=== PATIENT | male | born 1995 | race Caucasian/White ===

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

== ENCOUNTER 2017-01-17 00:36 | Inpatient (IN) | payer MEDICAID ==
[~2017-01-17] VITALS: Ht 185.4 cm; Wt 104.3 kg
[~2017-01-17 00:36] MED LIST: ARIP15TA3 PO
[2017-01-17 01:50] VITALS: BP 141/80
[2017-01-17] MEDS ORDERED: ZOLPIDEM TARTRATE 10 MG TABLET PO PRN (02:00)
[2017-01-17 03:30] VITALS: BP 135/78
[2017-01-17 08:12] VITALS: BP 119/71
[2017-01-17 09:32] LABS: BASOPHILS % (AUTO) 0.6 % (0.0-2.0); EOSINOPHILS % (AUTO) 2.5 % (1.0-6.0); HEMATOCRIT 47.9 % (41-53); HEMOGLOBIN 15.7 g/dL (13.5-17.5); LYMPHOCYTES # (AUTO) 2.3 K/uL (1.0-4.8); LYMPHOCYTES % (AUTO) 30.5 % (22.0-44.0); MEAN CORPUSCULAR HEMOGLOBIN 29.5 pg (26.0-34.0); MEAN CORPUSCULAR HGB CONC 32.9 G/dL (31.0-37.0); MEAN CORPUSCULAR VOLUME 90 fL (80-100); MONOCYTES # (AUTO) 0.6 K/uL (0.1-1.0); MONOCYTES % (AUTO) 7.3 % (2.0-9.0); NEUTROPHILS # (AUTO) 4.5 K/uL (1.8-7.7); NEUTROPHILS % (AUTO) 59.1 % (40.0-70.0); PLATELET COUNT (AUTO) 190 K/uL (150-450); RED BLOOD CELL COUNT(AUTO) 5.32 MIL/uL (4.50-5.90); RED CELL DISTRIBUTION WIDTH 13.1 % (11.5-14.5); WHITE BLOOD COUNT (AUTO) 7.6 K/uL (4.5-11.0)
[2017-01-17 09:55] LABS: ALANINE AMINOTRANSFERASE 54 U/L (12-78); ALBUMIN 3.9 g/dL (3.4-5.0); ANION GAP 8 mmol/L (8-16); ASPARTATE AMINOTRANSFERASE 20 U/L (15-37); BILIRUBIN,TOTAL 0.3 mg/dL (0.1-1.0); CALCIUM, TOTAL 8.8 mg/dL (8.8-10.5); CARBON DIOXIDE 31 mmol/L (22-29); CHLORIDE 103 mmol/L (98-107); CREATININE 1.02 mg/dL (0.60-1.30); GLOMERULAR FILTR. RATE CALC > 60 mL/min (>60); POTASSIUM 3.7 mmol/L (3.5-5.1); SODIUM SERUM 142 mmol/L (136-145); TOTAL PROTEIN, SERUM 7.5 g/dL (6.4-8.2); UREA NITROGEN, BLOOD 12 mg/dL (7-18)
[2017-01-17] MEDS: HALOPERIDOL 5 MG TABLET PO PRN (10:55)
[2017-01-17] MEDS: LORazepam 2 MG TABLET PO PRN ×2 (10:55→20:09)
[2017-01-17 16:00] VITALS: BP 122/64
[2017-01-17] MEDS: ARIPiprazole 15 MG TABLET PO SCH (20:08)
[2017-01-17] MEDS ORDERED: ACETAMINOPHEN 325 MG TABLET PO PRN (23:15)
[2017-01-17] MEDS ORDERED: IBUPROFEN 400 MG TABLET PO PRN (23:15)
[2017-01-18 06:00] VITALS: BP 124/72
[2017-01-18 08:16] VITALS: BP 135/78
[2017-01-18] MEDS: LORazepam 2 MG TABLET PO PRN ×3 (08:26→16:58)
[2017-01-18] MEDS: HALOPERIDOL 5 MG TABLET PO PRN ×3 (08:26→16:58)
[2017-01-18 09:12] LABS: HEMOGLOBIN A1C 5.2 % (4.5-6.2)
[2017-01-18 10:13] LABS: CHOL/HDL RATIO 5.2 (4.2-7.3); THYROID STIMULATING HORMONE 0.63 uIU/mL (0.36-3.74)
[2017-01-18 16:06] VITALS: BP 130/70
[2017-01-18] MEDS: ARIPiprazole 15 MG TABLET PO SCH (21:35)
[2017-01-19] MEDS: LORazepam 2 MG TABLET PO PRN ×2 (04:58→09:46)
[2017-01-19] MEDS: HALOPERIDOL 5 MG TABLET PO PRN ×2 (04:58→09:46)
[2017-01-19 05:24] VITALS: BP 132/78
[2017-01-19 09:30] VITALS: BP 133/68
== END 2017-01-19 14:40 | disposition home or self-care (01) | DRG 750 ==
LOC: B3A 02:41 → EDSTATUS 02:44
PROVIDERS: ADMIT Psychiatry & Neurology Child & Adolescent Psychiatry; ATTEND Psychiatry & Neurology Child & Adolescent Psychiatry
DX: F20.0 Paranoid schizophrenia (principal); F32.9 Major depressive disorder, single episode, unspecified; F41.9 Anxiety disorder, unspecified; R00.0 Tachycardia, unspecified; R03.0 Elevated blood-pressure reading, without diagnosis of hypertension; Z88.2 Allergy status to sulfonamides
CPT/HCPCS: 83036; 84443

== ENCOUNTER 2017-07-30 19:33 | Inpatient (IN) | payer MEDICAID ==
[~2017-07-30] VITALS: Ht 182.9 cm; Wt 101.6 kg
[~2017-07-30 19:33] MED LIST changes: +ARIP15TA2 PO; -ARIP15TA3 PO; +BENZ1TAB10 PO; +HC530C TP
[2017-07-30 23:12] VITALS: BP 149/81
[2017-07-31] MEDS: LORazepam 2 MG TABLET PO PRN ×4 (00:49→17:25)
[2017-07-31] MEDS: ZOLPIDEM TARTRATE 10 MG TABLET PO PRN ×2 (00:49→20:26)
[2017-07-31 01:03] VITALS: BP 131/70
[2017-07-31] MEDS: ARIPiprazole 5 MG TABLET PO SCH ×2 (08:30→20:26)
[2017-07-31] MEDS ORDERED: PETROLATUM,WHITE 71 GM JELLY TP PRN (08:30)
[2017-07-31] MEDS ORDERED: ALBUTEROL SULFATE HFA 90 MCG/PUFF 8 GM INHALER IH PRN (08:30)
[2017-07-31] MEDS ORDERED: HYDROCORTISONE 0.5% 30 GM CREAM TP PRN (08:30)
[2017-07-31] MEDS ORDERED: LOPERAMIDE HCL 2 MG CAPSULE PO PRN (08:30)
[2017-07-31] MEDS ORDERED: IBUPROFEN 600 MG TABLET PO PRN (08:30)
[2017-07-31] MEDS ORDERED: BENZOCAINE/MENTHOL LOZENGE MM PRN (08:30)
[2017-07-31] MEDS ORDERED: CloNIDine HCL 0.1 MG TABLET PO PRN (08:30)
[2017-07-31] MEDS ORDERED: ACETAMINOPHEN 325 MG TABLET PO PRN (08:30)
[2017-07-31] MEDS ORDERED: MAGNESIUM HYDROXIDE SUSPENSION 30 ML UDCUP PO PRN (08:30)
[2017-07-31] MEDS ORDERED: ONDANSETRON HCL 4 MG TABLET PO PRN (08:30)
[2017-07-31] MEDS ORDERED: MAG HYDROX/AL HYDROX/SIMETH ES 30 ML SUSPENSION UDCUP PO PRN (08:30)
[2017-07-31] MEDS ORDERED: BACITRACIN 28.4 GM OINTMENT TP PRN (08:30)
[2017-07-31 08:33] VITALS: BP 124/74
[2017-07-31] MEDS: OMEGA-3/DHA/EPA/FISH OIL 500 MG CAPSULE PO SCH (08:42)
[2017-07-31 08:51] LABS: BASOPHILS % (AUTO) 0.4 % (0.0-2.0); EOSINOPHILS % (AUTO) 4.6 % (1.0-6.0); HEMATOCRIT 44.7 % (41-53); HEMOGLOBIN 15.2 g/dL (13.5-17.5); LYMPHOCYTES # (AUTO) 1.9 K/uL (1.0-4.8); MEAN CORPUSCULAR HEMOGLOBIN 31.3 pg (26.0-34.0); MEAN CORPUSCULAR HGB CONC 34.1 G/dL (31.0-37.0); MEAN CORPUSCULAR VOLUME 92 fL (80-100); MONOCYTES # (AUTO) 0.6 K/uL (0.1-1.0); MONOCYTES % (AUTO) 7.3 % (2.0-9.0); NEUTROPHILS # (AUTO) 5.4 K/uL (1.8-7.7); NEUTROPHILS % (AUTO) 64.7 % (40.0-70.0); PLATELET COUNT (AUTO) 171 K/uL (150-450); RED BLOOD CELL COUNT(AUTO) 4.87 MIL/uL (4.50-5.90); RED CELL DISTRIBUTION WIDTH 12.9 % (11.5-14.5); WHITE BLOOD COUNT (AUTO) 8.3 K/uL (4.5-11.0)
[2017-07-31 09:41] LABS: HEMOGLOBIN A1C 4.8 % (4.5-6.2)
[2017-07-31 09:57] LABS: CHOL/HDL RATIO 6.1 (4.2-7.3); THYROID STIMULATING HORMONE 0.69 uIU/mL (0.36-3.74)
[2017-07-31 10:02] LABS: APPEARANCE,URINE CLEAR (CLEAR); GLUCOSE, URINE (UA) NEGATIVE (NEGATIVE); KETONES,URINE NEGATIVE (NEGATIVE); LEUKOCYTE ESTERASE ,URINE NEGATIVE (NEGATIVE); OCCULT BLOOD,URINE NEGATIVE (NEGATIVE); PROTEIN,URINE NEGATIVE (NEGATIVE)
[2017-07-31 10:06] LABS: ADD UA MICROSCOPIC NO
[2017-07-31 16:00] VITALS: BP 128/70
[2017-07-31] MEDS: HALOPERIDOL 5 MG TABLET PO PRN (17:25)
[2017-08-01 03:40] VITALS: BP 106/78
[2017-08-01] MEDS: LORazepam 2 MG TABLET PO PRN ×4 (04:00→21:44)
[2017-08-01 08:31] VITALS: BP 130/66
[2017-08-01] MEDS: OMEGA-3/DHA/EPA/FISH OIL 500 MG CAPSULE PO SCH (09:42)
[2017-08-01] MEDS: ARIPiprazole 5 MG TABLET PO SCH ×2 (09:42→20:07)
[2017-08-01 16:21] VITALS: BP 133/68
[2017-08-01] MEDS: HALOPERIDOL 5 MG TABLET PO PRN (16:35)
[2017-08-01] MEDS: ZOLPIDEM TARTRATE 10 MG TABLET PO PRN (20:07)
[2017-08-02 05:58] VITALS: BP 113/83
[2017-08-02] MEDS: LORazepam 2 MG TABLET PO PRN ×3 (05:58→16:30)
[2017-08-02] MEDS: ARIPiprazole 5 MG TABLET PO SCH ×2 (08:53→20:04)
[2017-08-02] MEDS: OMEGA-3/DHA/EPA/FISH OIL 500 MG CAPSULE PO SCH (08:53)
[2017-08-02 09:30] VITALS: BP 129/74
[2017-08-02] MEDS: HALOPERIDOL 5 MG TABLET PO PRN ×2 (10:41→16:30)
[2017-08-02] MEDS ORDERED: OMEG-136 PO (11:35)
[2017-08-02 16:13] VITALS: BP 121/72
[2017-08-02] MEDS: ZOLPIDEM TARTRATE 10 MG TABLET PO PRN (20:04)
[2017-08-03 01:00] VITALS: BP 128/77
[2017-08-03] MEDS: HALOPERIDOL 5 MG TABLET PO PRN ×3 (01:00→13:08)
[2017-08-03] MEDS: LORazepam 2 MG TABLET PO PRN ×3 (01:02→13:09)
[2017-08-03 08:25] VITALS: BP 134/75
[2017-08-03] MEDS: ARIPiprazole 5 MG TABLET PO SCH (08:51)
[2017-08-03] MEDS: OMEGA-3/DHA/EPA/FISH OIL 500 MG CAPSULE PO SCH (08:51)
== END 2017-08-03 14:30 | disposition home or self-care (01) | DRG 750 ==
LOC: B3A 22:10 → EDSTATUS 23:22 → B3A 07-31 00:27
PROVIDERS: ADMIT Psychiatry & Neurology Child & Adolescent Psychiatry; ATTEND Psychiatry & Neurology Child & Adolescent Psychiatry
DX: F20.0 Paranoid schizophrenia (principal); R45.851 Suicidal ideations; E78.5 Hyperlipidemia, unspecified; G47.00 Insomnia, unspecified; K59.00 Constipation, unspecified; L30.9 Dermatitis, unspecified; R03.0 Elevated blood-pressure reading, without diagnosis of hypertension; S01.312A Laceration without foreign body of left ear, initial encounter; X58.XXXA Exposure to other specified factors, initial encounter; Z88.2 Allergy status to sulfonamides; Z56.0 Unemployment, unspecified; Y93.89 Activity, other specified; Y92.89 Other specified places as the place of occurrence of the external cause; Y99.8 Other external cause status
CPT/HCPCS: 80307; 83036; 84439; 84443; 87081; 99285

== ENCOUNTER 2017-08-04 21:23 | Inpatient (IN) | payer MEDICAID ==
[~2017-08-04] VITALS: Ht 182.9 cm; Wt 101.9 kg
[~2017-08-04 21:23] MED LIST changes: -BENZ1TAB10 PO; -HC530C TP; +OMEG-136 PO
[2017-08-04 22:01] VITALS: BP 142/75
[2017-08-04] MEDS ORDERED: INFLUENZA VIRUS VACCINE QVS 2017-18 (3YR+)/PF 60 MCG/0.5 ML SYRINGE IM ONE (22:15)
[2017-08-04] MEDS: ZOLPIDEM TARTRATE 10 MG TABLET PO PRN (23:15)
[2017-08-05 01:54] VITALS: BP 135/68
[2017-08-05 03:10] VITALS: BP 130/65
[2017-08-05] MEDS: LORazepam 2 MG TABLET PO PRN (03:17)
[2017-08-05 05:00] VITALS: BP 128/68
[2017-08-05] MEDS: HALOPERIDOL 5 MG TABLET PO PRN (05:00)
[2017-08-05] MEDS ORDERED: BACITRACIN 28.4 GM OINTMENT TP PRN (07:45)
[2017-08-05] MEDS ORDERED: PETROLATUM,WHITE 71 GM JELLY TP PRN (07:45)
[2017-08-05] MEDS ORDERED: ALBUTEROL SULFATE HFA 90 MCG/PUFF 8 GM INHALER IH PRN (07:45)
[2017-08-05] MEDS ORDERED: ONDANSETRON HCL 4 MG TABLET PO PRN (07:45)
[2017-08-05] MEDS ORDERED: MAGNESIUM HYDROXIDE SUSPENSION 30 ML UDCUP PO PRN (07:45)
[2017-08-05] MEDS ORDERED: CloNIDine HCL 0.1 MG TABLET PO PRN (07:45)
[2017-08-05] MEDS ORDERED: ACETAMINOPHEN 325 MG TABLET PO PRN (07:45)
[2017-08-05] MEDS ORDERED: IBUPROFEN 600 MG TABLET PO PRN (07:45)
[2017-08-05] MEDS ORDERED: MAG HYDROX/AL HYDROX/SIMETH ES 30 ML SUSPENSION UDCUP PO PRN (07:45)
[2017-08-05] MEDS ORDERED: BENZOCAINE/MENTHOL LOZENGE MM PRN (07:45)
[2017-08-05] MEDS ORDERED: LOPERAMIDE HCL 2 MG CAPSULE PO PRN (07:45)
[2017-08-05 08:34] LABS: BASOPHILS % (AUTO) 0.5 % (0.0-2.0); HEMATOCRIT 44.2 % (41-53); LYMPHOCYTES # (AUTO) 2.5 K/uL (1.0-4.8); LYMPHOCYTES % (AUTO) 36.5 % (22.0-44.0); MEAN CORPUSCULAR HEMOGLOBIN 31.2 pg (26.0-34.0); MEAN CORPUSCULAR VOLUME 92 fL (80-100); MONOCYTES # (AUTO) 0.6 K/uL (0.1-1.0); MONOCYTES % (AUTO) 8.6 % (2.0-9.0); NEUTROPHILS # (AUTO) 3.6 K/uL (1.8-7.7); NEUTROPHILS % (AUTO) 51.4 % (40.0-70.0); PLATELET COUNT (AUTO) 177 K/uL (150-450); RED BLOOD CELL COUNT(AUTO) 4.82 MIL/uL (4.50-5.90); RED CELL DISTRIBUTION WIDTH 12.4 % (11.5-14.5)
[2017-08-05 09:08] LABS: ALANINE AMINOTRANSFERASE 36 U/L (12-78); ALBUMIN 3.8 g/dL (3.4-5.0); ANION GAP 7 mmol/L (8-16); ASPARTATE AMINOTRANSFERASE 20 U/L (15-37); BILIRUBIN,TOTAL 0.3 mg/dL (0.1-1.0); CALCIUM, TOTAL 8.6 mg/dL (8.8-10.5); CARBON DIOXIDE 30 mmol/L (22-29); CHLORIDE 103 mmol/L (98-107); GLOMERULAR FILTR. RATE CALC > 60 mL/min (>60); POTASSIUM 3.1 mmol/L (3.5-5.1); SODIUM SERUM 140 mmol/L (136-145); THYROID STIMULATING HORMONE 1.58 uIU/mL (0.36-3.74); TOTAL PROTEIN, SERUM 6.8 g/dL (6.4-8.2); UREA NITROGEN, BLOOD 12 mg/dL (7-18)
[2017-08-05 09:12] VITALS: BP 126/62
[2017-08-05] MEDS ORDERED: POTASSIUM CHLORIDE 20 MEQ ER TABLET PO ONE (11:00)
[2017-08-05 11:36] LABS: HEMOGLOBIN A1C 4.7 % (4.5-6.2)
[2017-08-05] MEDS: VENLAFAXINE HCL 75 MG ER CAPSULE PO SCH (13:26)
[2017-08-05] MEDS: ARIPiprazole 10 MG TABLET PO SCH (13:26)
[2017-08-05 16:28] VITALS: BP 128/71
[2017-08-05] MEDS: ZOLPIDEM TARTRATE 10 MG TABLET PO PRN (20:23)
[2017-08-06 00:12] VITALS: BP 126/70
[2017-08-06] MEDS: LORazepam 2 MG TABLET PO PRN ×2 (00:52→17:45)
[2017-08-06] MEDS: HALOPERIDOL 5 MG TABLET PO PRN ×2 (00:52→17:45)
[2017-08-06 08:36] VITALS: BP 113/65
[2017-08-06] MEDS: ARIPiprazole 10 MG TABLET PO SCH (08:48)
[2017-08-06] MEDS: VENLAFAXINE HCL 75 MG ER CAPSULE PO SCH (08:48)
[2017-08-06] MEDS ORDERED: ARIPiprazole ER SUSPENSION 400 MG PRE-FILLED DUAL CHAMBER SYRINGE IM SCH (09:00)
[2017-08-06 16:29] VITALS: BP 124/64
[2017-08-07] MEDS: LORazepam 2 MG TABLET PO PRN (01:32)
[2017-08-07] MEDS: HALOPERIDOL 5 MG TABLET PO PRN ×2 (01:32→12:42)
[2017-08-07] MEDS: ZOLPIDEM TARTRATE 10 MG TABLET PO PRN (02:06)
[2017-08-07 07:24] VITALS: BP 126/79
[2017-08-07 08:38] VITALS: BP 114/61
[2017-08-07] MEDS: ARIPiprazole 10 MG TABLET PO SCH (09:03)
[2017-08-07] MEDS: VENLAFAXINE HCL 75 MG ER CAPSULE PO SCH (09:03)
[2017-08-07] MEDS ORDERED: ARIP10TA8 PO (11:38)
[2017-08-07] MEDS ORDERED: VENL-67 PO (11:39)
[2017-08-07] MEDS ORDERED: ARIP400S3 IM (11:39)
== END 2017-08-07 14:05 | disposition home or self-care (01) | DRG 750 ==
LOC: B2S 21:43 → EDSTATUS 21:59
PROVIDERS: ADMIT Psychiatry & Neurology Child & Adolescent Psychiatry; ATTEND Psychiatry & Neurology Child & Adolescent Psychiatry
DX: F25.0 Schizoaffective disorder, bipolar type (principal); R45.851 Suicidal ideations; F79 Unspecified intellectual disabilities; E87.6 Hypokalemia; G47.00 Insomnia, unspecified; R03.0 Elevated blood-pressure reading, without diagnosis of hypertension; K59.00 Constipation, unspecified; Z88.2 Allergy status to sulfonamides
CPT/HCPCS: 83036; 84132; 84439; 84443; 87081; J0401

== ENCOUNTER 2017-08-08 15:23 | Emergency (ER) | payer MEDICAID ==
[~2017-08-08] VITALS: Ht 182.9 cm; Wt 100.0 kg
[~2017-08-08 15:23] MED LIST changes: +ARIP10TA8 PO; -ARIP15TA2 PO; +ARIP400S3 IM; -OMEG-136 PO; +VENL-67 PO
[2017-08-08 15:44] VITALS: BP 143/74
[2017-08-08 15:54] LABS: BASOPHILS % (AUTO) 0.4 % (0.0-2.0); EOSINOPHILS % (AUTO) 1.4 % (1.0-6.0); HEMATOCRIT 48.2 % (41-53); HEMOGLOBIN 16.8 g/dL (13.5-17.5); LYMPHOCYTES # (AUTO) 2.1 K/uL (1.0-4.8); LYMPHOCYTES % (AUTO) 18.2 % (22.0-44.0); MEAN CORPUSCULAR HEMOGLOBIN 31.6 pg (26.0-34.0); MEAN CORPUSCULAR HGB CONC 34.8 G/dL (31.0-37.0); MEAN CORPUSCULAR VOLUME 91 fL (80-100); MONOCYTES # (AUTO) 0.8 K/uL (0.1-1.0); MONOCYTES % (AUTO) 7.4 % (2.0-9.0); NEUTROPHILS # (AUTO) 8.2 K/uL (1.8-7.7); NEUTROPHILS % (AUTO) 72.6 % (40.0-70.0); PLATELET COUNT (AUTO) 202 K/uL (150-450); RED CELL DISTRIBUTION WIDTH 12.5 % (11.5-14.5); WHITE BLOOD COUNT (AUTO) 11.3 K/uL (4.5-11.0)
[2017-08-08 17:22] LABS: ANION GAP 7 mmol/L (8-16); CALCIUM, TOTAL 9.4 mg/dL (8.8-10.5); CARBON DIOXIDE 29 mmol/L (22-29); CHLORIDE 104 mmol/L (98-107); CREATININE 1.03 mg/dL (0.60-1.30); GLOMERULAR FILTR. RATE CALC > 60 mL/min (>60); POTASSIUM 3.8 mmol/L (3.5-5.1); SODIUM SERUM 140 mmol/L (136-145); UREA NITROGEN, BLOOD 6 mg/dL (7-18)
[2017-08-08 17:34] LABS: ALANINE AMINOTRANSFERASE 35 U/L (12-78); ALBUMIN 4.5 g/dL (3.4-5.0); ASPARTATE AMINOTRANSFERASE 19 U/L (15-37); BILIRUBIN,TOTAL 0.5 mg/dL (0.1-1.0); TOTAL PROTEIN, SERUM 7.9 g/dL (6.4-8.2)
== END 2017-08-08 17:10 | disposition left against medical advice (07) ==
LOC: EMS 15:32
DX: R44.0 Auditory hallucinations (principal); Z53.21 Procedure and treatment not carried out due to patient leaving prior to being seen by health care provider
CPT/HCPCS: 36415; 80053; 85025; G0480

== ENCOUNTER 2017-08-08 18:05 | Emergency (ER) | payer MEDICAID ==
[~2017-08-08] VITALS: Ht 182.9 cm; Wt 100.0 kg
[2017-08-08 19:09] LABS: BASOPHILS % (AUTO) 0.1 % (0.0-2.0); EOSINOPHILS % (AUTO) 1.5 % (1.0-6.0); HEMATOCRIT 46.6 % (41-53); HEMOGLOBIN 16.1 g/dL (13.5-17.5); LYMPHOCYTES # (AUTO) 1.6 K/uL (1.0-4.8); LYMPHOCYTES % (AUTO) 14.7 % (22.0-44.0); MEAN CORPUSCULAR HEMOGLOBIN 31.3 pg (26.0-34.0); MEAN CORPUSCULAR HGB CONC 34.5 G/dL (31.0-37.0); MEAN CORPUSCULAR VOLUME 91 fL (80-100); MONOCYTES # (AUTO) 0.7 K/uL (0.1-1.0); NEUTROPHILS # (AUTO) 8.4 K/uL (1.8-7.7); NEUTROPHILS % (AUTO) 77.7 % (40.0-70.0); PLATELET COUNT (AUTO) 203 K/uL (150-450); RED BLOOD CELL COUNT(AUTO) 5.13 MIL/uL (4.50-5.90); RED CELL DISTRIBUTION WIDTH 12.4 % (11.5-14.5); WHITE BLOOD COUNT (AUTO) 10.8 K/uL (4.5-11.0)
[2017-08-08 19:23] LABS: ANION GAP 10 mmol/L (8-16); CALCIUM, TOTAL 9.2 mg/dL (8.8-10.5); CARBON DIOXIDE 26 mmol/L (22-29); CHLORIDE 104 mmol/L (98-107); CREATININE 0.98 mg/dL (0.60-1.30); GLOMERULAR FILTR. RATE CALC > 60 mL/min (>60); POTASSIUM 3.8 mmol/L (3.5-5.1); SODIUM SERUM 140 mmol/L (136-145); UREA NITROGEN, BLOOD 5 mg/dL (7-18)
[2017-08-08 19:28] LABS: ALANINE AMINOTRANSFERASE 34 U/L (12-78); ALBUMIN 4.5 g/dL (3.4-5.0); ASPARTATE AMINOTRANSFERASE 22 U/L (15-37); BILIRUBIN,TOTAL 0.5 mg/dL (0.1-1.0)
[2017-08-08] MEDS ORDERED: ACETAMINOPHEN 325 MG TABLET PO ONE (20:15)
[2017-08-08 20:31] VITALS: BP 140/82
== END 2017-08-08 20:32 | disposition home or self-care (01) ==
LOC: EMS 18:06
DX: F20.9 Schizophrenia, unspecified (principal); J02.9 Acute pharyngitis, unspecified
CPT/HCPCS: 36415; 80053; 80307; 85025; 99284; G0480

== ENCOUNTER 2017-09-08 20:40 | Emergency (ER) | payer MEDICAID ==
[~2017-09-08 20:40] MED LIST changes: -ARIP10TA8 PO
== END 2017-09-08 21:51 | disposition left against medical advice (07) ==
LOC: EMS 20:56
DX: Z53.21 Procedure and treatment not carried out due to patient leaving prior to being seen by health care provider (principal)

== ENCOUNTER 2017-10-21 23:06 | Inpatient (IN) | payer MEDICAID ==
[~2017-10-21] VITALS: Ht 190.5 cm; Wt 104.9 kg
[2017-10-22 00:06] VITALS: BP 134/89
[2017-10-22 00:49] VITALS: BP 126/81
[2017-10-22] MEDS: ZOLPIDEM TARTRATE 10 MG TABLET PO PRN ×2 (01:32→22:47)
[2017-10-22 07:44] LABS: HEMOGLOBIN A1C 5.3 % (4.5-6.2)
[2017-10-22 07:46] LABS: BASOPHILS # (AUTO) 0.03 K/uL (0.00-0.20); BASOPHILS % (AUTO) 0.5 % (0.0-2.0); EOSINOPHILS # (AUTO) 0.18 K/uL (0.00-0.70); EOSINOPHILS % (AUTO) 2.62 % (1.0-6.0); HEMATOCRIT 45.1 % (41-53); HEMOGLOBIN 15.3 g/dL (13.5-17.5); LYMPHOCYTES # (AUTO) 2.3 K/uL (1.0-4.8); LYMPHOCYTES % (AUTO) 33.9 % (22.0-44.0); MEAN CORPUSCULAR HEMOGLOBIN 30.5 pg (26.0-34.0); MEAN CORPUSCULAR HGB CONC 33.9 G/dL (31.0-37.0); MEAN CORPUSCULAR VOLUME 90 fL (80-100); MONOCYTES # (AUTO) 0.5 K/uL (0.1-1.0); MONOCYTES % (AUTO) 7.7 % (2.0-9.0); NEUTROPHILS # (AUTO) 3.8 K/uL (1.8-7.7); NEUTROPHILS % (AUTO) 55.3 % (40.0-70.0); PLATELET COUNT (AUTO) 186 K/uL (150-450); RED BLOOD CELL COUNT(AUTO) 5.01 MIL/uL (4.50-5.90); RED CELL DISTRIBUTION WIDTH 12.8 % (11.5-14.5); WHITE BLOOD COUNT (AUTO) 6.8 K/uL (4.5-11.0)
[2017-10-22 08:30] VITALS: BP 124/60
[2017-10-22] MEDS ORDERED: IBUPROFEN 600 MG TABLET PO PRN (08:45)
[2017-10-22] MEDS ORDERED: ONDANSETRON HCL 4 MG TABLET PO PRN (08:45)
[2017-10-22] MEDS ORDERED: ACETAMINOPHEN 325 MG TABLET PO PRN (08:45)
[2017-10-22] MEDS ORDERED: BENZOCAINE/MENTHOL LOZENGE MM PRN (08:45)
[2017-10-22] MEDS ORDERED: CloNIDine HCL 0.1 MG TABLET PO PRN (08:45)
[2017-10-22] MEDS ORDERED: MAGNESIUM HYDROXIDE SUSPENSION 30 ML UDCUP PO PRN (08:45)
[2017-10-22] MEDS ORDERED: ALBUTEROL SULFATE HFA 90 MCG/PUFF 8 GM INHALER IH PRN (08:45)
[2017-10-22] MEDS ORDERED: LOPERAMIDE HCL 2 MG CAPSULE PO PRN (08:45)
[2017-10-22] MEDS ORDERED: BACITRACIN 28.4 GM OINTMENT TP PRN (08:45)
[2017-10-22] MEDS ORDERED: PETROLATUM,WHITE 71 GM JELLY TP PRN (08:45)
[2017-10-22 08:58] LABS: ALANINE AMINOTRANSFERASE 45 U/L (12-78); ALBUMIN 3.9 g/dL (3.4-5.0); ANION GAP 9 mmol/L (8-16); ASPARTATE AMINOTRANSFERASE 22 U/L (15-37); BILIRUBIN,TOTAL 0.4 mg/dL (0.1-1.0); CALCIUM, TOTAL 8.7 mg/dL (8.8-10.5); CARBON DIOXIDE 29 mmol/L (22-29); CHLORIDE 102 mmol/L (98-107); CHOL/HDL RATIO 5.4 (4.2-7.3); CREATININE 1.15 mg/dL (0.60-1.30); GLOMERULAR FILTR. RATE CALC > 60 mL/min (>60); POTASSIUM 3.7 mmol/L (3.5-5.1); SODIUM SERUM 140 mmol/L (136-145); THYROID STIMULATING HORMONE 0.61 uIU/mL (0.36-3.74); TOTAL PROTEIN, SERUM 7.1 g/dL (6.4-8.2); UREA NITROGEN, BLOOD 11 mg/dL (7-18)
[2017-10-22] MEDS: ARIPiprazole 10 MG TABLET PO SCH (09:38)
[2017-10-22 16:31] VITALS: BP 123/84
[2017-10-23 00:06] VITALS: BP 119/67
[2017-10-23] MEDS: LORazepam 2 MG TABLET PO PRN ×2 (00:11→20:44)
[2017-10-23] MEDS: HALOPERIDOL 5 MG TABLET PO PRN (00:33)
[2017-10-23 08:39] VITALS: BP_SYST 120; BP_SYST 95; BP_DIAS 47; BP_DIAS 78
[2017-10-23] MEDS: ARIPiprazole 10 MG TABLET PO SCH (09:31)
[2017-10-23 16:20] VITALS: BP 119/60
[2017-10-23] MEDS: MAG HYDROX/AL HYDROX/SIMETH ES 30 ML SUSPENSION UDCUP PO PRN (19:53)
[2017-10-23] MEDS: ZOLPIDEM TARTRATE 10 MG TABLET PO PRN (20:05)
[2017-10-24] MEDS: LORazepam 2 MG TABLET PO PRN ×2 (03:21→22:08)
[2017-10-24] MEDS: HALOPERIDOL 5 MG TABLET PO PRN (03:21)
[2017-10-24 05:42] VITALS: BP 105/68
[2017-10-24 08:00] VITALS: BP 103/47
[2017-10-24] MEDS: ARIPiprazole 10 MG TABLET PO SCH (08:20)
[2017-10-24] MEDS: OMEGA-3/DHA/EPA/FISH OIL 1,000 MG CAPSULE PO SCH (08:20)
[2017-10-24 16:06] VITALS: BP 123/75
[2017-10-24] MEDS: MAG HYDROX/AL HYDROX/SIMETH ES 30 ML SUSPENSION UDCUP PO PRN (19:37)
[2017-10-24] MEDS: ZOLPIDEM TARTRATE 10 MG TABLET PO PRN (20:01)
[2017-10-25 00:01] VITALS: BP 145/89
[2017-10-25] MEDS: HALOPERIDOL 5 MG TABLET PO PRN (00:16)
[2017-10-25] MEDS: OMEGA-3/DHA/EPA/FISH OIL 1,000 MG CAPSULE PO SCH (08:40)
[2017-10-25] MEDS: ARIPiprazole 10 MG TABLET PO SCH (08:40)
[2017-10-25] MEDS ORDERED: CHOLECALCIFEROL (VIT D3) 1,000 UNITS TABLET PO SCH (09:00)
[2017-10-25 09:07] VITALS: BP 110/67
[2017-10-25] MEDS ORDERED: ARIP10TA8 PO (16:28)
[2017-10-25] MEDS ORDERED: FISH1 PO (16:28)
[2017-10-25] MEDS ORDERED: CHOL100062 PO (16:28)
[2017-10-25 16:36] VITALS: BP 123/80
== END 2017-10-25 17:30 | disposition home or self-care (01) | DRG 750 ==
LOC: B2S 23:45
PROVIDERS: ADMIT Psychiatry & Neurology Psychiatry; ATTEND Psychiatry & Neurology Child & Adolescent Psychiatry
DX: F20.0 Paranoid schizophrenia (principal); R45.851 Suicidal ideations; E83.51 Hypocalcemia; K59.00 Constipation, unspecified; G47.00 Insomnia, unspecified; E78.1 Pure hyperglyceridemia; Z88.2 Allergy status to sulfonamides
CPT/HCPCS: 82306; 83036; 84439; 84443; 99285

== ENCOUNTER 2018-11-22 22:08 | Emergency (ER) | payer MEDICAID, OTHER ==
[~2018-11-22] VITALS: Ht 175.3 cm; Wt 80.9 kg
[~2018-11-22 22:08] MED LIST changes: +ARIP15TA2 PO; -ARIP400S3 IM; -VENL-67 PO; +VENL75CA55 PO
[2018-11-22 23:25] LABS: BASOPHILS % (AUTO) 0.9 % (0.0-2.0); EOSINOPHILS % (AUTO) 2.8 % (1.0-6.0); HEMATOCRIT 45.1 % (41-53); HEMOGLOBIN 15.7 g/dL (13.5-17.5); LYMPHOCYTES % (AUTO) 28.2 % (22.0-44.0); MEAN CORPUSCULAR HEMOGLOBIN 30.5 pg (26.0-34.0); MEAN CORPUSCULAR HGB CONC 34.7 G/dL (31.0-37.0); MEAN CORPUSCULAR VOLUME 88 fL (80-100); MONOCYTES # (AUTO) 0.6 K/uL (0.1-1.0); MONOCYTES % (AUTO) 8.1 % (2.0-9.0); NEUTROPHILS # (AUTO) 4.2 K/uL (1.8-7.7); PLATELET COUNT (AUTO) 185 K/uL (150-450); RED BLOOD CELL COUNT(AUTO) 5.14 MIL/uL (4.50-5.90); RED CELL DISTRIBUTION WIDTH 13.1 % (11.5-14.5)
[2018-11-22 23:33] LABS: AMPHET/METH SCREEN,URINE NEGATIVE (NEGATIVE); BARBITURATE SCREEN, URINE NEGATIVE (NEGATIVE); BENZODIAZEPINES SCREEN,URINE NEGATIVE (NEGATIVE); CANNABINOID SCREEN,URINE NEGATIVE (NEGATIVE); COCAINE SCREEN,URINE NEGATIVE (NEGATIVE); METHADONE SCREEN, URINE NEGATIVE (NEGATIVE); OPIATE SCREEN,URINE NEGATIVE (NEGATIVE); PHENCYCLIDINE SCREEN,URINE NEGATIVE (NEGATIVE)
[2018-11-22 23:37] LABS: ANION GAP 5 mmol/L (8-16); CALCIUM, TOTAL 9.8 mg/dL (8.8-10.5); CARBON DIOXIDE 32 mmol/L (22-29); CHLORIDE 105 mmol/L (98-107); CREATININE 0.93 mg/dL (0.60-1.30); GLOMERULAR FILTR. RATE CALC > 60 mL/min (>60); GLUCOSE,RANDOM 77 mg/dL (70-110); SODIUM SERUM 142 mmol/L (136-145); UREA NITROGEN, BLOOD 16 mg/dL (7-18)
[2018-11-22 23:42] LABS: ALANINE AMINOTRANSFERASE 24 U/L (12-78); ALBUMIN 3.9 g/dL (3.4-5.0); ALKALINE PHOSPHATASE 67 U/L (46-116); ASPARTATE AMINOTRANSFERASE 13 U/L (15-37); BILIRUBIN,TOTAL 0.3 mg/dL (0.1-1.0)
[2018-11-23 01:47] VITALS: BP 146/84
== END 2018-11-23 01:48 | disposition home or self-care (01) ==
LOC: EMS 22:10
DX: R44.0 Auditory hallucinations (principal); R44.1 Visual hallucinations; Z88.2 Allergy status to sulfonamides; Z79.899 Other long term (current) drug therapy
CPT/HCPCS: 36415; 80053; 80307; 85025; 99284; G0480

== ENCOUNTER 2019-01-31 00:02 | Inpatient (IN) | payer MEDICAID, OTHER ==
[~2019-01-31] VITALS: Ht 182.9 cm; Wt 90.3 kg
[2019-01-31] MEDS ORDERED: ZOLPIDEM TARTRATE 10 MG TABLET PO PRN (00:45)
[2019-01-31] MEDS ORDERED: HALOPERIDOL 5 MG TABLET PO PRN (00:45)
[2019-01-31] MEDS: LORazepam 2 MG TABLET PO PRN (02:06)
[2019-01-31 02:10] VITALS: BP 124/69
[2019-01-31] MEDS ORDERED: MAGNESIUM HYDROXIDE SUSPENSION 30 ML UDCUP PO PRN (06:30)
[2019-01-31] MEDS ORDERED: DOCUSATE SODIUM 100 MG CAPSULE PO PRN (06:30)
[2019-01-31] MEDS ORDERED: ALBUTEROL SULFATE HFA 90 MCG/PUFF 8 GM INHALER IH PRN (06:30)
[2019-01-31] MEDS ORDERED: ACETAMINOPHEN 325 MG TABLET PO PRN (06:30)
[2019-01-31] MEDS ORDERED: LOPERAMIDE HCL 2 MG CAPSULE PO PRN (06:30)
[2019-01-31] MEDS ORDERED: GuaiFENesin/D-METHORPHAN [SUGAR-FREE] 200-20MG/10 ML SYRUP UDCUP PO PRN (06:30)
[2019-01-31] MEDS ORDERED: MAG HYDROX/AL HYDROX/SIMETH ES 30 ML SUSPENSION UDCUP PO PRN (06:30)
[2019-01-31] MEDS ORDERED: NICOTINE 14 MG/24 HOUR PATCH TD PRN (06:30)
[2019-01-31] MEDS ORDERED: CloNIDine HCL 0.1 MG TABLET PO PRN (06:30)
[2019-01-31] MEDS ORDERED: ONDANSETRON HCL 4 MG TABLET PO PRN (06:30)
[2019-01-31] MEDS ORDERED: PETROLATUM,WHITE 28 GM JELLY TP PRN (06:30)
[2019-01-31 08:00] VITALS: BP 120/76
[2019-01-31] MEDS ORDERED: ARIPiprazole 15 MG TABLET PO ONE (11:15)
[2019-01-31 16:15] VITALS: BP 121/59
[2019-01-31] MEDS: MIRTAZAPINE 15 MG TABLET PO SCH (21:06)
[2019-02-01 03:06] VITALS: BP 120/86
[2019-02-01 08:21] LABS: BASOPHILS % (AUTO) 0.5 % (0.0-2.0); EOSINOPHILS % (AUTO) 1.9 % (1.0-6.0); HEMATOCRIT 45.7 % (41-53); HEMOGLOBIN 15.5 g/dL (13.5-17.5); LYMPHOCYTES # (AUTO) 2.2 K/uL (1.0-4.8); LYMPHOCYTES % (AUTO) 39.2 % (22.0-44.0); MEAN CORPUSCULAR HEMOGLOBIN 30.3 pg (26.0-34.0); MEAN CORPUSCULAR VOLUME 89 fL (80-100); MONOCYTES # (AUTO) 0.4 K/uL (0.1-1.0); MONOCYTES % (AUTO) 7.9 % (2.0-9.0); NEUTROPHILS # (AUTO) 2.9 K/uL (1.8-7.7); NEUTROPHILS % (AUTO) 50.5 % (40.0-70.0); PLATELET COUNT (AUTO) 174 K/uL (150-450); RED BLOOD CELL COUNT(AUTO) 5.13 MIL/uL (4.50-5.90); RED CELL DISTRIBUTION WIDTH 12.8 % (11.5-14.5)
[2019-02-01] MEDS: ARIPiprazole 15 MG TABLET PO SCH (08:32)
[2019-02-01 08:39] LABS: HEMOGLOBIN A1C 5.3 % (4.5-6.2)
[2019-02-01 08:54] VITALS: BP 123/62
[2019-02-01 09:00] LABS: ALANINE AMINOTRANSFERASE 17 U/L (12-78); ALBUMIN 3.8 g/dL (3.4-5.0); ALKALINE PHOSPHATASE 58 U/L (46-116); ANION GAP 10 mmol/L (8-16); ASPARTATE AMINOTRANSFERASE 10 U/L (15-37); BILIRUBIN,TOTAL 0.3 mg/dL (0.1-1.0); CALCIUM, TOTAL 9.2 mg/dL (8.8-10.5); CARBON DIOXIDE 26 mmol/L (22-29); CHLORIDE 107 mmol/L (98-107); CHOLESTEROL 141 mg/dL (131-200); CREATININE 0.95 mg/dL (0.60-1.30); FREE T4 (FREE THYROXINE) 0.74 ng/dL (0.76-1.46); GLOMERULAR FILTR. RATE CALC > 60 mL/min (>60); GLUCOSE,RANDOM 86 mg/dL (70-110); HDL CHOLESTEROL 35 mg/dL (40-60); LDL CHOL (CALC.) 83 mg/dL (0-130); POTASSIUM 3.8 mmol/L (3.5-5.1); SODIUM SERUM 143 mmol/L (136-145); THYROID STIMULATING HORMONE 0.56 uIU/mL (0.36-3.74); TOTAL PROTEIN, SERUM 6.6 g/dL (6.4-8.2); TRIGLYCERIDES 117 mg/dL (15-150); UREA NITROGEN, BLOOD 18 mg/dL (7-18)
[2019-02-01] MEDS: IBUPROFEN 400 MG TABLET PO PRN (12:21)
[2019-02-01 16:21] VITALS: BP 100/60
[2019-02-01] MEDS: LORazepam 2 MG TABLET PO PRN (20:35)
[2019-02-01] MEDS: MIRTAZAPINE 15 MG TABLET PO SCH (20:35)
[2019-02-02 01:33] VITALS: BP 107/63
[2019-02-02 03:30] VITALS: BP 115/89
[2019-02-02] MEDS: IBUPROFEN 400 MG TABLET PO PRN (03:42)
[2019-02-02 08:00] VITALS: BP 114/60
[2019-02-02] MEDS: ARIPiprazole 15 MG TABLET PO SCH (08:54)
[2019-02-02] MEDS ORDERED: MIRT15 PO (11:32)
== END 2019-02-02 12:30 | disposition home or self-care (01) | DRG 750 ==
LOC: B2S 00:30 → EDSTATUS 01:19
PROVIDERS: ADMIT Psychiatry & Neurology Psychiatry; ATTEND Psychiatry & Neurology Psychiatry
DX: F20.9 Schizophrenia, unspecified (principal); E55.9 Vitamin D deficiency, unspecified; E66.9 Obesity, unspecified; G47.00 Insomnia, unspecified; K59.00 Constipation, unspecified; Z79.899 Other long term (current) drug therapy; Z68.27 Body mass index [BMI] 27.0-27.9, adult
CPT/HCPCS: 83036; 84439; 84443

== ENCOUNTER 2019-08-09 20:39 | Inpatient (IN) | payer MEDICAID ==
[~2019-08-09] VITALS: Ht 198.1 cm; Wt 92.9 kg
[~2019-08-09 20:39] MED LIST changes: +MIRT15 PO; -VENL75CA55 PO
[2019-08-09] MEDS ORDERED: TRAZ-252 PO (20:56)
[2019-08-09] MEDS ORDERED: ARIP10TA8 PO (20:56)
[2019-08-09] MEDS ORDERED: LORazepam 2 MG TABLET PO PRN (21:00)
[2019-08-09] MEDS ORDERED: HALOPERIDOL 5 MG TABLET PO PRN (21:00)
[2019-08-09 21:54] VITALS: BP 140/75
[2019-08-09] MEDS ORDERED: INFLUENZA VIRUS VACCINE QVS 2019-20 (3YR+)/PF 60 MCG/0.5 ML SYRINGE IM ONE (22:15)
[2019-08-09] MEDS: ZOLPIDEM TARTRATE 10 MG TABLET PO PRN (22:40)
[2019-08-10 04:22] VITALS: BP 124/84
[2019-08-10 07:54] LABS: BASOPHILS % (AUTO) 0.4 % (0.0-2.0); HEMATOCRIT 48.2 % (41-53); HEMOGLOBIN 16.6 g/dL (13.5-17.5); LYMPHOCYTES # (AUTO) 2.1 K/uL (1.0-4.8); MEAN CORPUSCULAR HEMOGLOBIN 30.6 pg (26.0-34.0); MEAN CORPUSCULAR HGB CONC 34.4 G/dL (31.0-37.0); MEAN CORPUSCULAR VOLUME 89 fL (80-100); MONOCYTES # (AUTO) 0.7 K/uL (0.1-1.0); NEUTROPHILS # (AUTO) 3.6 K/uL (1.8-7.7); NEUTROPHILS % (AUTO) 54.6 % (40.0-70.0); PLATELET COUNT (AUTO) 215 K/uL (150-450); RED BLOOD CELL COUNT(AUTO) 5.43 MIL/uL (4.50-5.90); RED CELL DISTRIBUTION WIDTH 13.1 % (11.5-14.5)
[2019-08-10 08:04] VITALS: BP 131/67
[2019-08-10 08:24] LABS: ALANINE AMINOTRANSFERASE 20 U/L (12-78); ALBUMIN 4.6 g/dL (3.4-5.0); ALKALINE PHOSPHATASE 83 U/L (46-116); ANION GAP 8 mmol/L (8-16); ASPARTATE AMINOTRANSFERASE 14 U/L (15-37); BILIRUBIN,TOTAL 0.6 mg/dL (0.1-1.0); CALCIUM, TOTAL 10.1 mg/dL (8.8-10.5); CARBON DIOXIDE 30 mmol/L (22-29); CHLORIDE 100 mmol/L (98-107); CHOL/HDL RATIO 4.8 (4.2-7.3); CHOLESTEROL 148 mg/dL (131-200); CREATININE 1.06 mg/dL (0.60-1.30); FREE T4 (FREE THYROXINE) 0.99 ng/dL (0.76-1.46); GLOMERULAR FILTR. RATE CALC > 60 mL/min (>60); GLUCOSE,RANDOM 82 mg/dL (70-110); HDL CHOLESTEROL 31 mg/dL (40-60); LDL CHOL (CALC.) 88 mg/dL (0-130); POTASSIUM 3.6 mmol/L (3.5-5.1); SODIUM SERUM 138 mmol/L (136-145); THYROID STIMULATING HORMONE 0.54 uIU/mL (0.36-3.74); TOTAL PROTEIN, SERUM 7.5 g/dL (6.4-8.2); TRIGLYCERIDES 145 mg/dL (15-150); UREA NITROGEN, BLOOD 10 mg/dL (7-18)
[2019-08-10] MEDS ORDERED: CloNIDine HCL 0.1 MG TABLET PO PRN (13:15)
[2019-08-10] MEDS ORDERED: ALBUTEROL SULFATE HFA 90 MCG/PUFF 8 GM INHALER IH PRN (13:15)
[2019-08-10] MEDS ORDERED: NICOTINE 14 MG/24 HOUR PATCH TD PRN (13:15)
[2019-08-10] MEDS ORDERED: GuaiFENesin/D-METHORPHAN [SUGAR-FREE] 200-20MG/10 ML SYRUP UDCUP PO PRN (13:15)
[2019-08-10] MEDS ORDERED: ACETAMINOPHEN 325 MG TABLET PO PRN (13:15)
[2019-08-10] MEDS ORDERED: ONDANSETRON HCL 4 MG TABLET PO PRN (13:15)
[2019-08-10] MEDS ORDERED: MAG HYDROX/AL HYDROX/SIMETH ES 30 ML SUSPENSION UDCUP PO PRN (13:15)
[2019-08-10] MEDS ORDERED: DOCUSATE SODIUM 100 MG CAPSULE PO PRN (13:15)
[2019-08-10] MEDS ORDERED: PETROLATUM,WHITE 28 GM JELLY TP PRN (13:15)
[2019-08-10] MEDS ORDERED: LOPERAMIDE HCL 2 MG CAPSULE PO PRN (13:15)
[2019-08-10] MEDS ORDERED: MAGNESIUM HYDROXIDE SUSPENSION 30 ML UDCUP PO PRN (13:15)
[2019-08-10] MEDS: ARIPiprazole 10 MG TABLET PO SCH (15:09)
[2019-08-10 16:03] VITALS: BP 123/64
[2019-08-10] MEDS: IBUPROFEN 400 MG TABLET PO PRN (16:14)
[2019-08-10 17:30] VITALS: BP 137/72
[2019-08-10] MEDS: TraZODone HCL 50 MG TABLET PO SCH (20:29)
[2019-08-11 01:12] VITALS: BP 133/74
[2019-08-11 08:13] VITALS: BP 136/73
[2019-08-11] MEDS: ARIPiprazole 10 MG TABLET PO SCH (08:25)
[2019-08-11 16:04] VITALS: BP 105/60
[2019-08-11] MEDS: TraZODone HCL 50 MG TABLET PO SCH (20:11)
[2019-08-12 01:16] VITALS: BP 120/62
[2019-08-12] MEDS: ARIPiprazole 10 MG TABLET PO SCH (08:24)
[2019-08-12 08:34] VITALS: BP 123/68
[2019-08-12 16:12] VITALS: BP 132/74
[2019-08-12] MEDS: IBUPROFEN 400 MG TABLET PO PRN (17:10)
[2019-08-12] MEDS: TraZODone HCL 50 MG TABLET PO SCH (20:06)
[2019-08-13 00:45] VITALS: BP 119/71
[2019-08-13 08:21] VITALS: BP 108/62
[2019-08-13] MEDS: ARIPiprazole 15 MG TABLET PO SCH (08:26)
[2019-08-13 16:17] VITALS: BP 122/76
[2019-08-13] MEDS: TraZODone HCL 50 MG TABLET PO SCH (20:00)
[2019-08-14 00:38] VITALS: BP 111/66
[2019-08-14] MEDS: ZOLPIDEM TARTRATE 10 MG TABLET PO PRN (00:38)
[2019-08-14 08:22] VITALS: BP 140/68
[2019-08-14] MEDS: ARIPiprazole 15 MG TABLET PO SCH (08:33)
[2019-08-14 16:04] VITALS: BP 127/88
[2019-08-14] MEDS: TraZODone HCL 50 MG TABLET PO SCH (20:25)
[2019-08-15 06:26] VITALS: BP 110/66
[2019-08-15 08:17] VITALS: BP 124/67
[2019-08-15] MEDS: ARIPiprazole 15 MG TABLET PO SCH (08:29)
[2019-08-15] MEDS ORDERED: TRAZ-252 PO ×2 (09:57→11:25)
[2019-08-15] MEDS ORDERED: ARIP15TA2 PO ×2 (09:57→11:24)
== END 2019-08-15 11:55 | disposition home or self-care (01) | DRG 750 ==
LOC: B2S 21:00
DX: F25.1 Schizoaffective disorder, depressive type (principal); R45.851 Suicidal ideations; E56.9 Vitamin deficiency, unspecified; E66.9 Obesity, unspecified; F31.9 Bipolar disorder, unspecified; G44.209 Tension-type headache, unspecified, not intractable; G47.00 Insomnia, unspecified; K59.00 Constipation, unspecified; Z88.2 Allergy status to sulfonamides; Z79.899 Other long term (current) drug therapy; Z68.23 Body mass index [BMI] 23.0-23.9, adult
CPT/HCPCS: 83036; 84439; 84443; 90686

== ENCOUNTER 2021-05-07 04:25 | Emergency (ER) | payer MEDICAID, OTHER ==
[~2021-05-07] VITALS: Ht 180.3 cm; Wt 95.5 kg
[~2021-05-07 04:25] MED LIST changes: -ARIP15TA2 PO; +ARIP15TA27 PO; -MIRT15 PO; +TRAZ-252 PO
[2021-05-07 05:03] LABS: BASOPHILS % (AUTO) 0.5 % (0.0-2.0); EOSINOPHILS % (AUTO) 2.8 % (1.0-6.0); HEMATOCRIT 48.3 % (41-53); HEMOGLOBIN 16.5 g/dL (13.5-17.5); LYMPHOCYTES # (AUTO) 2.8 K/uL (1.0-4.8); MEAN CORPUSCULAR HEMOGLOBIN 30.2 pg (26.0-34.0); MEAN CORPUSCULAR HGB CONC 34.2 G/dL (31.0-37.0); MEAN CORPUSCULAR VOLUME 88 fL (80-100); MONOCYTES # (AUTO) 0.8 K/uL (0.1-1.0); MONOCYTES % (AUTO) 11.2 % (2.0-9.0); NEUTROPHILS # (AUTO) 3.5 K/uL (1.8-7.7); NEUTROPHILS % (AUTO) 47.5 % (40.0-70.0); PLATELET COUNT (AUTO) 193 K/uL (150-450); RED BLOOD CELL COUNT(AUTO) 5.46 MIL/uL (4.50-5.90); RED CELL DISTRIBUTION WIDTH 12.9 % (11.5-14.5)
[2021-05-07 05:07] LABS: ANION GAP 4 mmol/L (8-16); CALCIUM, TOTAL 9.6 mg/dL (8.8-10.5); CARBON DIOXIDE 31 mmol/L (22-29); CHLORIDE 105 mmol/L (98-107); CREATININE 1.07 mg/dL (0.60-1.30); GLOMERULAR FILTR. RATE CALC > 60 mL/min (>60); GLUCOSE,RANDOM 95 mg/dL (70-110); POTASSIUM 3.8 mmol/L (3.5-5.1); SODIUM SERUM 140 mmol/L (136-145); UREA NITROGEN, BLOOD 21 mg/dL (7-18)
[2021-05-07 05:13] LABS: ALANINE AMINOTRANSFERASE 32 U/L (12-78); ALBUMIN 4.4 g/dL (3.4-5.0); ALKALINE PHOSPHATASE 69 U/L (46-116); ASPARTATE AMINOTRANSFERASE 23 U/L (15-37); BILIRUBIN,TOTAL 0.6 mg/dL (0.1-1.0); TOTAL PROTEIN, SERUM 7.8 g/dL (6.4-8.2)
[2021-05-07 05:14] LABS: ACETAMINOPHEN < 2 mcg/mL (10-30)
[2021-05-07 05:23] LABS: AMPHET/METH SCREEN,URINE POSITIVE (NEGATIVE); BARBITURATE SCREEN, URINE NEGATIVE (NEGATIVE); BENZODIAZEPINES SCREEN,URINE NEGATIVE (NEGATIVE); CANNABINOID SCREEN,URINE NEGATIVE (NEGATIVE); COCAINE SCREEN,URINE NEGATIVE (NEGATIVE); METHADONE SCREEN, URINE NEGATIVE (NEGATIVE); OPIATE SCREEN,URINE NEGATIVE (NEGATIVE)
[2021-05-07 05:24] LABS: PHENCYCLIDINE SCREEN,URINE NEGATIVE (NEGATIVE)
[2021-05-07 05:30] LABS: SALICYLATE < 0.2 mg/dL (2.8-20.0)
[2021-05-07 05:45] LABS: COVID AG,FIA SOURCE NASOPHARYNGEAL
[2021-05-07 11:14] LABS: SALICYLATE < 2.8 mg/dL (2.8-20.0)
[2021-05-07 11:17] LABS: ACETAMINOPHEN < 2 mcg/mL (10-30)
[2021-05-07 12:40] VITALS: BP 124/66
== END 2021-05-07 12:45 | disposition home or self-care (01) ==
LOC: EMS 04:25
DX: F20.0 Paranoid schizophrenia (principal); F15.90 Other stimulant use, unspecified, uncomplicated; F17.210 Nicotine dependence, cigarettes, uncomplicated; F11.90 Opioid use, unspecified, uncomplicated; F12.90 Cannabis use, unspecified, uncomplicated; Z20.822 Contact with and (suspected) exposure to COVID-19; Z88.1 Allergy status to other antibiotic agents
CPT/HCPCS: 36415; 80053; 80307; 85025; 87426; 93005; 99285; G0480; G0481

== ENCOUNTER 2021-07-03 21:51 | Inpatient (IN) | payer MEDICAID ==
[~2021-07-03] VITALS: Ht 180.3 cm; Wt 96.1 kg
[2021-07-03] MEDS ORDERED: ZOLPIDEM TARTRATE 10 MG TABLET PO PRN (23:15)
[2021-07-03] MEDS ORDERED: HALOPERIDOL 5 MG TABLET PO PRN (23:15)
[2021-07-03] MEDS ORDERED: LORazepam 2 MG TABLET PO PRN (23:15)
[2021-07-03 23:32] LABS: GLUCOMETER DEV NAME(LOC) POC.BV
[2021-07-04 00:21] VITALS: BP 144/86
[2021-07-04 07:43] LABS: BASOPHILS % (AUTO) 0.6 % (0.0-2.0); EOSINOPHILS % (AUTO) 1.8 % (1.0-6.0); HEMATOCRIT 46.3 % (41-53); HEMOGLOBIN 15.7 g/dL (13.5-17.5); LYMPHOCYTES # (AUTO) 2.4 K/uL (1.0-4.8); LYMPHOCYTES % (AUTO) 39.7 % (22.0-44.0); MEAN CORPUSCULAR HEMOGLOBIN 30.3 pg (26.0-34.0); MEAN CORPUSCULAR HGB CONC 33.9 G/dL (31.0-37.0); MEAN CORPUSCULAR VOLUME 89 fL (80-100); MONOCYTES # (AUTO) 0.6 K/uL (0.1-1.0); MONOCYTES % (AUTO) 10.6 % (2.0-9.0); NEUTROPHILS # (AUTO) 2.8 K/uL (1.8-7.7); NEUTROPHILS % (AUTO) 47.3 % (40.0-70.0); PLATELET COUNT (AUTO) 195 K/uL (150-450); RED BLOOD CELL COUNT(AUTO) 5.19 MIL/uL (4.50-5.90); RED CELL DISTRIBUTION WIDTH 13.4 % (11.5-14.5)
[2021-07-04 08:19] LABS: ALANINE AMINOTRANSFERASE 34 U/L (12-78); ALBUMIN 4.2 g/dL (3.4-5.0); ALKALINE PHOSPHATASE 65 U/L (46-116); ANION GAP 9 mmol/L (8-16); ASPARTATE AMINOTRANSFERASE 20 U/L (15-37); BILIRUBIN,TOTAL 0.5 mg/dL (0.1-1.0); CARBON DIOXIDE 30 mmol/L (22-29); CHLORIDE 103 mmol/L (98-107); CHOL/HDL RATIO 4.8 (4.2-7.3); CHOLESTEROL 143 mg/dL (131-200); CREATININE 0.93 mg/dL (0.60-1.30); FREE T4 (FREE THYROXINE) 1.01 ng/dL (0.76-1.46); GLOMERULAR FILTR. RATE CALC > 60 mL/min (>60); GLUCOSE,RANDOM 83 mg/dL (70-110); HDL CHOLESTEROL 30 mg/dL (40-60); LDL CHOL (CALC.) 84 mg/dL (0-130); POTASSIUM 4.2 mmol/L (3.5-5.1); SODIUM SERUM 142 mmol/L (136-145); THYROID STIMULATING HORMONE 1.34 uIU/mL (0.36-3.74); TOTAL PROTEIN, SERUM 7.3 g/dL (6.4-8.2); TRIGLYCERIDES 143 mg/dL (15-150); UREA NITROGEN, BLOOD 17 mg/dL (7-18)
[2021-07-04 08:31] VITALS: BP 133/84
[2021-07-04] MEDS: ARIPiprazole 10 MG TABLET PO SCH (13:27)
[2021-07-04 16:29] VITALS: BP 123/78
[2021-07-05 03:13] VITALS: BP 118/60
[2021-07-05 08:15] VITALS: BP 119/77
[2021-07-05] MEDS: ARIPiprazole 10 MG TABLET PO SCH (09:16)
[2021-07-05 16:14] VITALS: BP 112/64
[2021-07-06 03:05] VITALS: BP 128/68
[2021-07-06 08:19] VITALS: BP 110/64
[2021-07-06] MEDS: ARIPiprazole 10 MG TABLET PO SCH (09:44)
[2021-07-06 16:31] VITALS: BP 108/68
[2021-07-07 01:40] VITALS: BP 111/62
[2021-07-07] MEDS ORDERED: ALBUTEROL SULFATE HFA 90 MCG/PUFF 8 GM INHALER IH PRN (07:00)
[2021-07-07] MEDS ORDERED: BACITRACIN 28 GM OINTMENT TP PRN (07:00)
[2021-07-07] MEDS ORDERED: IBUPROFEN 600 MG TABLET PO PRN (07:00)
[2021-07-07] MEDS ORDERED: CloNIDine HCL 0.1 MG TABLET PO PRN (07:00)
[2021-07-07] MEDS ORDERED: LOPERAMIDE HCL 2 MG CAPSULE PO PRN (07:00)
[2021-07-07] MEDS ORDERED: OMEPRAZOLE 20 MG CAPSULE PO PRN (07:00)
[2021-07-07] MEDS ORDERED: MAGNESIUM HYDROXIDE SUSPENSION 30 ML UDCUP PO PRN (07:00)
[2021-07-07] MEDS ORDERED: PETROLATUM,WHITE 28 GM JELLY TP PRN (07:00)
[2021-07-07] MEDS ORDERED: MAG HYDROX/AL HYDROX/SIMETH ES 30 ML SUSPENSION UDCUP PO PRN (07:00)
[2021-07-07] MEDS ORDERED: BENZOCAINE/MENTHOL LOZENGE PO PRN (07:00)
[2021-07-07] MEDS ORDERED: DOCUSATE SODIUM 100 MG CAPSULE PO PRN (07:00)
[2021-07-07] MEDS ORDERED: ONDANSETRON HCL 4 MG TABLET PO PRN (07:00)
[2021-07-07] MEDS ORDERED: ACETAMINOPHEN 325 MG TABLET PO PRN (07:00)
[2021-07-07 08:24] VITALS: BP 121/67
[2021-07-07] MEDS: ARIPiprazole 10 MG TABLET PO SCH (08:37)
[2021-07-07] MEDS ORDERED: ARIP10TA38 PO ×3 (12:52→12:58)
== END 2021-07-07 14:30 | disposition home or self-care (01) | DRG 750 ==
LOC: B2S 23:28
PROVIDERS: ADMIT Psychiatry & Neurology Psychiatry; ATTEND Psychiatry & Neurology Psychiatry
DX: F25.9 Schizoaffective disorder, unspecified (principal); R45.851 Suicidal ideations; Z20.822 Contact with and (suspected) exposure to COVID-19; G44.209 Tension-type headache, unspecified, not intractable; F31.9 Bipolar disorder, unspecified; F19.10 Other psychoactive substance abuse, uncomplicated; F41.9 Anxiety disorder, unspecified; K59.00 Constipation, unspecified; G47.00 Insomnia, unspecified
CPT/HCPCS: 80053; 80061; 83036; 84439; 84443; 85025

== ENCOUNTER 2021-09-28 21:55 | Inpatient (IN) | payer MEDICAID ==
[~2021-09-28] VITALS: Ht 180.3 cm; Wt 95.9 kg
[~2021-09-28 21:55] MED LIST changes: +ARIP10TA38 PO; -ARIP15TA27 PO; -TRAZ-252 PO
[2021-09-29 00:49] LABS: GLUCOMETER DEV NAME(LOC) POC.BV
[2021-09-29] MEDS ORDERED: ZOLPIDEM TARTRATE 10 MG TABLET PO PRN (02:00)
[2021-09-29 03:32] VITALS: BP 135/87
[2021-09-29 08:37] VITALS: BP 122/61
[2021-09-29] MEDS ORDERED: CloNIDine HCL 0.1 MG TABLET PO PRN (10:15)
[2021-09-29] MEDS ORDERED: MAGNESIUM HYDROXIDE SUSPENSION 30 ML UDCUP PO PRN (10:15)
[2021-09-29] MEDS ORDERED: PETROLATUM,WHITE 28 GM JELLY TP PRN (10:15)
[2021-09-29] MEDS ORDERED: DOCUSATE SODIUM 100 MG CAPSULE PO PRN (10:15)
[2021-09-29] MEDS ORDERED: ALBUTEROL SULFATE HFA 90 MCG/PUFF 8 GM INHALER IH PRN (10:15)
[2021-09-29] MEDS ORDERED: ONDANSETRON HCL 4 MG TABLET PO PRN (10:15)
[2021-09-29] MEDS ORDERED: LOPERAMIDE HCL 2 MG CAPSULE PO PRN (10:15)
[2021-09-29] MEDS ORDERED: GuaiFENesin/D-METHORPHAN [SUGAR-FREE] 200-20MG/10 ML SYRUP UDCUP PO PRN (10:15)
[2021-09-29] MEDS ORDERED: NICOTINE 14 MG/24 HOUR PATCH TD PRN (10:15)
[2021-09-29] MEDS: ARIPiprazole 10 MG TABLET PO SCH (11:45)
[2021-09-29] MEDS: IBUPROFEN 400 MG TABLET PO PRN (14:30)
[2021-09-29 16:28] VITALS: BP 109/68
[2021-09-29] MEDS: LORazepam 2 MG TABLET PO PRN (17:08)
[2021-09-29] MEDS: MAG HYDROX/AL HYDROX/SIMETH ES 30 ML SUSPENSION UDCUP PO PRN (17:08)
[2021-09-29] MEDS: ACETAMINOPHEN 325 MG TABLET PO PRN (22:41)
[2021-09-30 01:05] VITALS: BP 118/70
[2021-09-30 05:45] VITALS: BP 115/77
[2021-09-30] MEDS: IBUPROFEN 400 MG TABLET PO PRN ×2 (05:50→18:15)
[2021-09-30 08:10] LABS: BASOPHILS % (AUTO) 0.4 % (0.0-2.0); EOSINOPHILS % (AUTO) 2.9 % (1.0-6.0); HEMATOCRIT 45.7 % (41-53); LYMPHOCYTES # (AUTO) 2.2 K/uL (1.0-4.8); LYMPHOCYTES % (AUTO) 32.6 % (22.0-44.0); MEAN CORPUSCULAR HEMOGLOBIN 30.5 pg (26.0-34.0); MEAN CORPUSCULAR HGB CONC 34.9 G/dL (31.0-37.0); MEAN CORPUSCULAR VOLUME 87 fL (80-100); MONOCYTES % (AUTO) 9.8 % (2.0-9.0); NEUTROPHILS # (AUTO) 3.6 K/uL (1.8-7.7); NEUTROPHILS % (AUTO) 54.3 % (40.0-70.0); PLATELET COUNT (AUTO) 203 K/uL (150-450); RED BLOOD CELL COUNT(AUTO) 5.23 MIL/uL (4.50-5.90); RED CELL DISTRIBUTION WIDTH 12.6 % (11.5-14.5)
[2021-09-30 08:11] LABS: MONOCYTES # (AUTO) 0.6 K/uL (0.1-1.0)
[2021-09-30 08:12] LABS: HEMOGLOBIN A1C 5.2 % (3.8-5.6)
[2021-09-30] MEDS: ACETAMINOPHEN 325 MG TABLET PO PRN ×2 (08:21→21:04)
[2021-09-30] MEDS: ARIPiprazole 10 MG TABLET PO SCH (08:22)
[2021-09-30] MEDS: MAG HYDROX/AL HYDROX/SIMETH ES 30 ML SUSPENSION UDCUP PO PRN (08:25)
[2021-09-30 08:31] LABS: ALANINE AMINOTRANSFERASE 30 U/L (12-78); ALBUMIN 4.1 g/dL (3.4-5.0); ALKALINE PHOSPHATASE 61 U/L (46-116); ANION GAP 3 mmol/L (8-16); ASPARTATE AMINOTRANSFERASE 16 U/L (15-37); BILIRUBIN,TOTAL 0.5 mg/dL (0.1-1.0); CALCIUM, TOTAL 9.4 mg/dL (8.8-10.5); CARBON DIOXIDE 31 mmol/L (22-29); CHLORIDE 104 mmol/L (98-107); CHOL/HDL RATIO 6.1 (4.2-7.3); CHOLESTEROL 172 mg/dL (131-200); CREATININE 0.95 mg/dL (0.60-1.30); FREE T4 (FREE THYROXINE) 0.92 ng/dL (0.76-1.46); GLOMERULAR FILTR. RATE CALC > 60 mL/min (>60); GLUCOSE,RANDOM 92 mg/dL (70-110); HDL CHOLESTEROL 28 mg/dL (40-60); LDL CHOL (CALC.) 111 mg/dL (0-130); POTASSIUM 4.2 mmol/L (3.5-5.1); SODIUM SERUM 138 mmol/L (136-145); THYROID STIMULATING HORMONE 0.64 uIU/mL (0.36-3.74); TOTAL PROTEIN, SERUM 7.5 g/dL (6.4-8.2); TRIGLYCERIDES 167 mg/dL (15-150); UREA NITROGEN, BLOOD 16 mg/dL (7-18)
[2021-09-30 09:00] VITALS: BP 118/70
[2021-09-30 16:19] VITALS: BP 109/68
[2021-09-30] MEDS: ERYTHROMYCIN 0.5% 3.5 GM TUBE OPHTHALMIC OINTMENT OD SCH (16:45)
[2021-09-30 18:11] VITALS: BP 121/74
[2021-09-30] MEDS: LORazepam 2 MG TABLET PO PRN (20:28)
[2021-10-01] MEDS: IBUPROFEN 400 MG TABLET PO PRN ×2 (03:09→16:27)
[2021-10-01 08:13] VITALS: BP 107/66
[2021-10-01] MEDS: ARIPiprazole 10 MG TABLET PO SCH (08:34)
[2021-10-01] MEDS: ERYTHROMYCIN 0.5% 3.5 GM TUBE OPHTHALMIC OINTMENT OD SCH ×2 (08:35→16:25)
[2021-10-01] MEDS: HALOPERIDOL 5 MG TABLET PO PRN (08:38)
[2021-10-01] MEDS: LORazepam 2 MG TABLET PO PRN ×2 (08:39→20:21)
[2021-10-01] MEDS: ACETAMINOPHEN 325 MG TABLET PO PRN ×2 (12:45→20:47)
[2021-10-01 16:14] VITALS: BP 109/68
[2021-10-02 02:11] VITALS: BP 129/69
[2021-10-02 08:37] VITALS: BP 140/65
[2021-10-02] MEDS: LORazepam 2 MG TABLET PO PRN ×2 (09:03→17:07)
[2021-10-02] MEDS: IBUPROFEN 400 MG TABLET PO PRN (09:03)
[2021-10-02] MEDS: ARIPiprazole 10 MG TABLET PO SCH (09:04)
[2021-10-02] MEDS: ERYTHROMYCIN 0.5% 3.5 GM TUBE OPHTHALMIC OINTMENT OD SCH ×2 (09:05→16:41)
[2021-10-02] MEDS: ACETAMINOPHEN 325 MG TABLET PO PRN (12:13)
[2021-10-02 16:24] VITALS: BP 110/69
[2021-10-02] MEDS: HALOPERIDOL 5 MG TABLET PO PRN (17:08)
== END 2021-10-02 18:51 | disposition home or self-care (01) | DRG 750 ==
LOC: B2S 09-29 01:30
PROVIDERS: ADMIT Psychiatry & Neurology Psychiatry; ATTEND Psychiatry & Neurology Psychiatry
DX: F25.1 Schizoaffective disorder, depressive type (principal); R45.851 Suicidal ideations; Z91.14 Patient's other noncompliance with medication regimen; F17.210 Nicotine dependence, cigarettes, uncomplicated; F19.10 Other psychoactive substance abuse, uncomplicated; Z20.822 Contact with and (suspected) exposure to COVID-19; G44.209 Tension-type headache, unspecified, not intractable; G47.00 Insomnia, unspecified; Z79.899 Other long term (current) drug therapy; Z88.2 Allergy status to sulfonamides
CPT/HCPCS: 80053; 80061; 83036; 84439; 84443; 85025

== ENCOUNTER 2022-10-14 15:25 | Emergency (ER) | payer MEDICAID, OTHER ==
[2022-10-14 17:26] LABS: BASOPHILS % (AUTO) 1.2 % (0.0-2.0); EOSINOPHILS % (AUTO) 1.7 % (1.0-6.0); HEMATOCRIT 47.5 % (41-53); HEMOGLOBIN 16.3 g/dL (13.5-17.5); LYMPHOCYTES # (AUTO) 1.8 K/uL (1.0-4.8); LYMPHOCYTES % (AUTO) 37.5 % (22.0-44.0); MEAN CORPUSCULAR HEMOGLOBIN 30.2 pg (26.0-34.0); MEAN CORPUSCULAR HGB CONC 34.3 G/dL (31.0-37.0); MEAN CORPUSCULAR VOLUME 88 fL (80-100); MONOCYTES # (AUTO) 0.6 K/uL (0.1-1.0); MONOCYTES % (AUTO) 11.8 % (2.0-9.0); NEUTROPHILS # (AUTO) 2.3 K/uL (1.8-7.7); NEUTROPHILS % (AUTO) 47.8 % (40.0-70.0); PLATELET COUNT (AUTO) 192 K/uL (150-450); RED BLOOD CELL COUNT(AUTO) 5.39 MIL/uL (4.50-5.90); RED CELL DISTRIBUTION WIDTH 12.5 % (11.5-14.5)
[2022-10-14 17:36] LABS: ANION GAP 6 mmol/L (8-16); CALCIUM, TOTAL 9.5 mg/dL (8.8-10.5); CARBON DIOXIDE 34 mmol/L (22-29); CHLORIDE 101 mmol/L (98-107); CREATININE 1.05 mg/dL (0.60-1.30); GLUCOSE,RANDOM 79 mg/dL (70-110); POTASSIUM 3.6 mmol/L (3.5-5.1); SODIUM SERUM 141 mmol/L (136-145); UREA NITROGEN, BLOOD 12 mg/dL (7-18)
[2022-10-14 17:37] LABS: GLOMERULAR FILTR. RATE CALC > 60 mL/min (>60)
[2022-10-14 17:43] LABS: ALANINE AMINOTRANSFERASE 32 U/L (12-78); ALBUMIN 4.6 g/dL (3.4-5.0); ALKALINE PHOSPHATASE 61 U/L (46-116); ASPARTATE AMINOTRANSFERASE 23 U/L (15-37); BILIRUBIN,TOTAL 0.7 mg/dL (0.1-1.0); TOTAL PROTEIN, SERUM 7.9 g/dL (6.4-8.2)
== END 2022-10-14 17:45 | disposition home or self-care (01) ==
LOC: EMS 15:48
DX: R44.0 Auditory hallucinations (principal); Z53.21 Procedure and treatment not carried out due to patient leaving prior to being seen by health care provider
CPT/HCPCS: 71045; 80053; 85025; 36415; 93005; G0480

== ENCOUNTER 2023-09-27 18:47 | Inpatient (IN) | payer MEDICAID ==
[~2023-09-27] VITALS: Ht 185.4 cm; Wt 92.5 kg
[2023-09-27] MEDS ORDERED: HALOPERIDOL 5 MG TABLET PO PRN (19:15)
[2023-09-27] MEDS ORDERED: LORazepam 2 MG TABLET PO PRN (19:15)
[2023-09-27] MEDS ORDERED: ZOLPIDEM TARTRATE 10 MG TABLET PO PRN (19:15)
[2023-09-27] MEDS ORDERED: INFLUENZA VIRUS VACCINE QVS 2023-24 (6MO+)/PF 60 MCG/0.5 ML SYRINGE IM. ONE (20:45)
[2023-09-27 20:58] VITALS: BP 139/80; PULSE 85; RESP 18; TEMP 97.9
[2023-09-28 07:53] LABS: BASOPHILS % (AUTO) 0.4 % (0.0-2.0); EOSINOPHILS % (AUTO) 2.9 % (1.0-6.0); HEMOGLOBIN 14.9 g/dL (13.5-17.5); LYMPHOCYTES # (AUTO) 1.6 K/uL (1.0-4.8); LYMPHOCYTES % (AUTO) 34.3 % (22.0-44.0); MEAN CORPUSCULAR HEMOGLOBIN 31.2 pg (26.0-34.0); MEAN CORPUSCULAR HGB CONC 35.4 G/dL (31.0-37.0); MEAN CORPUSCULAR VOLUME 88 fL (80-100); MONOCYTES # (AUTO) 0.4 K/uL (0.1-1.0); MONOCYTES % (AUTO) 8.4 % (2.0-9.0); NEUTROPHILS # (AUTO) 2.5 K/uL (1.8-7.7); PLATELET COUNT (AUTO) 186 K/uL (150-450); RED BLOOD CELL COUNT(AUTO) 4.77 MIL/uL (4.50-5.90); RED CELL DISTRIBUTION WIDTH 13.2 % (11.5-14.5); WHITE BLOOD COUNT (AUTO) 4.5 K/uL (4.5-11.0)
[2023-09-28 08:17] LABS: ALANINE AMINOTRANSFERASE 29 U/L (12-78); ALBUMIN 3.6 g/dL (3.4-5.0); ALKALINE PHOSPHATASE 60 U/L (46-116); ANION GAP 2 mmol/L (8-16); ASPARTATE AMINOTRANSFERASE 17 U/L (15-37); BILIRUBIN,TOTAL 0.2 mg/dL (0.1-1.0); CARBON DIOXIDE 32 mmol/L (22-29); CHLORIDE 104 mmol/L (98-107); CHOL/HDL RATIO 3.6 (4.2-7.3); CHOLESTEROL 135 mg/dL (131-200); CREATININE 0.96 mg/dL (0.60-1.30); FREE T4 (FREE THYROXINE) 0.72 ng/dL (0.76-1.46); GLOMERULAR FILTR. RATE CALC > 60 mL/min (>60); GLUCOSE,RANDOM 87 mg/dL (70-110); HDL CHOLESTEROL 38 mg/dL (40-60); LDL CHOL (CALC.) 82 mg/dL (0-130); SODIUM SERUM 138 mmol/L (136-145); THYROID STIMULATING HORMONE 1.01 uIU/mL (0.36-3.74); TOTAL PROTEIN, SERUM 7.1 g/dL (6.4-8.2); TRIGLYCERIDES 75 mg/dL (15-150); UREA NITROGEN, BLOOD 11 mg/dL (7-18)
[2023-09-28 08:25] VITALS: BP 113/72; PULSE 81; RESP 17; TEMP 97.5; O2SAT 98
[2023-09-28] MEDS ORDERED: ACETAMINOPHEN 325 MG TABLET PO PRN (09:15)
[2023-09-28] MEDS ORDERED: MAGNESIUM HYDROXIDE SUSPENSION 30 ML UDCUP PO PRN (09:15)
[2023-09-28] MEDS ORDERED: ALBUTEROL SULFATE HFA 90 MCG/PUFF 8 GM INHALER IH PRN (09:15)
[2023-09-28] MEDS ORDERED: BENZOCAINE/MENTHOL LOZENGE PO PRN (09:15)
[2023-09-28] MEDS ORDERED: DOCUSATE SODIUM 100 MG CAPSULE PO PRN (09:15)
[2023-09-28] MEDS ORDERED: LOPERAMIDE HCL 2 MG CAPSULE PO PRN (09:15)
[2023-09-28] MEDS ORDERED: ONDANSETRON HCL 4 MG TABLET PO PRN (09:15)
[2023-09-28] MEDS ORDERED: PETROLATUM,WHITE 28 GM JELLY TP PRN (09:15)
[2023-09-28] MEDS ORDERED: BACITRACIN 28 GM OINTMENT TP PRN (09:15)
[2023-09-28] MEDS ORDERED: OMEPRAZOLE 20 MG CAPSULE PO PRN (09:15)
[2023-09-28] MEDS ORDERED: CloNIDine HCL 0.1 MG TABLET PO PRN (09:15)
[2023-09-28] MEDS ORDERED: MAG HYDROX/ALUMINUM HYD/SIMETH ES 30 ML SUSPENSION UDCUP PO PRN (09:15)
[2023-09-28 11:22] VITALS: RESP 18
[2023-09-28] MEDS: IBUPROFEN 600 MG TABLET PO PRN (11:22)
[2023-09-28 12:22] VITALS: RESP 17
[2023-09-28 17:03] LABS: APPEARANCE,URINE CLEAR (CLEAR); BILIRUBIN,URINE NEGATIVE (NEGATIVE); COLOR,URINE LIGHT YELLOW (YELLOW); GLUCOSE, URINE (UA) NEGATIVE (NEGATIVE); KETONES,URINE NEGATIVE (NEGATIVE); LEUKOCYTE ESTERASE ,URINE NEGATIVE (NEGATIVE); NITRATE,URINE NEGATIVE (NEGATIVE); OCCULT BLOOD,URINE NEGATIVE (NEGATIVE); PROTEIN,URINE NEGATIVE (NEGATIVE); SPECIFIC GRAVITIY, URINE 1.013 (1.003-1.030); UROBILINOGEN,URINE <=1.0 mg/dL (<=1.0)
[2023-09-28 17:09] LABS: AMPHET/METH SCREEN,URINE POSITIVE (NEGATIVE); BARBITURATE SCREEN, URINE NEGATIVE (NEGATIVE); BENZODIAZEPINES SCREEN,URINE NEGATIVE (NEGATIVE); CANNABINOID SCREEN,URINE NEGATIVE (NEGATIVE); COCAINE SCREEN,URINE NEGATIVE (NEGATIVE); METHADONE SCREEN, URINE NEGATIVE (NEGATIVE); OPIATE SCREEN,URINE NEGATIVE (NEGATIVE); PHENCYCLIDINE SCREEN,URINE NEGATIVE (NEGATIVE)
[2023-09-28 17:11] LABS: ALCOHOL, URINE DRUG SCREEN NEGATIVE (NEGATIVE)
[2023-09-28 20:13] VITALS: BP 136/83; PULSE 73; RESP 20; TEMP 97.8; O2SAT 99
[2023-09-29 08:35] VITALS: BP 115/67; PULSE 100; RESP 17; TEMP 98; O2SAT 97
[2023-09-29] MEDS ORDERED: ARIPiprazole ER SUSPENSION 400 MG PRE-FILLED DUAL CHAMBER SYRINGE IM SCH (09:00)
[2023-09-29 10:15] VITALS: RESP 17
[2023-09-29] MEDS: IBUPROFEN 600 MG TABLET PO PRN (10:15)
[2023-09-29 11:15] VITALS: RESP 18
[2023-09-29 12:35] VITALS: RESP 18
[2023-09-29] MEDS ORDERED: BENZOCAINE 10% 7 GM GEL TP PRN (13:30)
[2023-09-29 13:35] VITALS: RESP 17
[2023-10-01 09:11] LABS: GLUCOMETER DEV NAME(LOC) POC.BV; POC SARS-COV2 AG, FIA NEGATIVE (NEGATIVE)
[2023-10-01 09:11] LABS: GLUCOMETER DEV NAME(LOC) POC.BV; POC SARS-COV2 AG, FIA NEGATIVE (NEGATIVE)
== END 2023-09-29 18:40 | disposition home or self-care (01) | DRG 750 ==
LOC: B3A 19:59
PROVIDERS: ADMIT Psychiatry & Neurology Psychiatry; ATTEND Psychiatry & Neurology Psychiatry
DX: F20.9 Schizophrenia, unspecified (principal); E66.9 Obesity, unspecified; F15.10 Other stimulant abuse, uncomplicated; G47.00 Insomnia, unspecified; F41.9 Anxiety disorder, unspecified; K59.00 Constipation, unspecified; Z68.26 Body mass index [BMI] 26.0-26.9, adult; Z20.822 Contact with and (suspected) exposure to COVID-19
CPT/HCPCS: 80053; 80061; 80307; 81003; 83036; 84439; 84443; 85025; J0401

== ENCOUNTER 2023-10-18 05:40 | Inpatient (IN) | payer MEDICAID ==
[~2023-10-18] VITALS: Ht 182.9 cm; Wt 90.3 kg
[2023-10-18] MEDS ORDERED: DiphenhydrAMINE HCL 50 MG/ML VIAL IM ONE (06:00)
[2023-10-18] MEDS ORDERED: LORazepam 2 MG/ML VIAL IM ONE (06:00)
[2023-10-18] MEDS ORDERED: HALOPERIDOL LACTATE 5 MG/ML VIAL IM ONE (06:00)
[2023-10-18] MEDS ORDERED: ZIPRASIDONE MESYLATE 20 MG/VIAL IM ONE ×2 (09:15)
[2023-10-18 12:52] LABS: COVID AG,FIA SOURCE NASAL SWAB
[2023-10-18 13:16] LABS: SARS-COV2 (COVID) ANTIGEN,FIA Negative (Negative)
[2023-10-18 17:13] LABS: APPEARANCE,URINE CLEAR (CLEAR); BILIRUBIN,URINE NEGATIVE (NEGATIVE); COLOR,URINE COLORLESS (YELLOW); GLUCOSE, URINE (UA) NEGATIVE (NEGATIVE); KETONES,URINE NEGATIVE (NEGATIVE); LEUKOCYTE ESTERASE ,URINE NEGATIVE (NEGATIVE); NITRATE,URINE NEGATIVE (NEGATIVE); OCCULT BLOOD,URINE NEGATIVE (NEGATIVE); PH,URINE 6.5 (5.0-8.0); PROTEIN,URINE NEGATIVE (NEGATIVE); SPECIFIC GRAVITIY, URINE 1.009 (1.003-1.030); UROBILINOGEN,URINE <=1.0 mg/dL (<=1.0)
[2023-10-18 17:14] LABS: PH,URINE DRUG SCREEN 6.5 (5.0-8.0)
[2023-10-18 17:21] LABS: ALCOHOL, URINE DRUG SCREEN NEGATIVE (NEGATIVE); AMPHET/METH SCREEN,URINE POSITIVE (NEGATIVE); BARBITURATE SCREEN, URINE NEGATIVE (NEGATIVE); BENZODIAZEPINES SCREEN,URINE NEGATIVE (NEGATIVE); CANNABINOID SCREEN,URINE NEGATIVE (NEGATIVE); COCAINE SCREEN,URINE NEGATIVE (NEGATIVE); METHADONE SCREEN, URINE NEGATIVE (NEGATIVE); OPIATE SCREEN,URINE NEGATIVE (NEGATIVE); PHENCYCLIDINE SCREEN,URINE NEGATIVE (NEGATIVE)
[2023-10-18] MEDS: ZOLPIDEM TARTRATE 10 MG TABLET PO PRN (19:52)
[2023-10-19] MEDS: LORazepam 2 MG TABLET PO PRN ×2 (04:14→09:57)
[2023-10-19] MEDS: HALOPERIDOL 5 MG TABLET PO PRN (09:57)
[2023-10-19 15:03] VITALS: BP 131/81; PULSE 98; RESP 18; TEMP 98; O2SAT 97
[2023-10-19] MEDS ORDERED: INFLUENZA VIRUS VACCINE QVS 2023-24 (6MO+)/PF 60 MCG/0.5 ML SYRINGE IM. ONE (15:45)
[2023-10-19] MEDS ORDERED: PNEUMOCOCCAL VACCINE POLYVALENT 0.5 ML SYRINGE [PPSV23] IM. ONE (15:45)
[2023-10-19] MEDS ORDERED: CloNIDine HCL 0.1 MG TABLET PO PRN (17:30)
[2023-10-19] MEDS ORDERED: ONDANSETRON HCL 4 MG TABLET PO PRN (17:30)
[2023-10-19] MEDS ORDERED: LOPERAMIDE HCL 2 MG CAPSULE PO PRN (17:30)
[2023-10-19] MEDS ORDERED: BENZOCAINE/MENTHOL LOZENGE PO PRN (17:30)
[2023-10-19] MEDS ORDERED: DOCUSATE SODIUM 100 MG CAPSULE PO PRN (17:30)
[2023-10-19] MEDS ORDERED: BACITRACIN 28 GM OINTMENT TP PRN (17:30)
[2023-10-19] MEDS ORDERED: PETROLATUM,WHITE 28 GM JELLY TP PRN (17:30)
[2023-10-19] MEDS ORDERED: ALBUTEROL SULFATE HFA 90 MCG/PUFF 8 GM INHALER IH PRN (17:30)
[2023-10-19] MEDS ORDERED: MAGNESIUM HYDROXIDE SUSPENSION 30 ML UDCUP PO PRN (17:30)
[2023-10-19] MEDS ORDERED: ACETAMINOPHEN 325 MG TABLET PO PRN (17:30)
[2023-10-19] MEDS ORDERED: OMEPRAZOLE 20 MG CAPSULE PO PRN (17:30)
[2023-10-19 20:19] VITALS: BP 105/62; PULSE 92; RESP 18; TEMP 97.9
[2023-10-19] MEDS: ZOLPIDEM TARTRATE 10 MG TABLET PO PRN (21:11)
[2023-10-20] MEDS: ARIPiprazole 15 MG TABLET PO SCH ×4 (08:50→16:18)
[2023-10-20 08:51] VITALS: BP 105/77; PULSE 102; RESP 18; TEMP 97.8
[2023-10-20] MEDS: LORazepam 2 MG TABLET PO PRN (12:19)
[2023-10-20] MEDS: HALOPERIDOL 5 MG TABLET PO PRN (12:19)
[2023-10-20 20:42] VITALS: BP 109/60; PULSE 81; RESP 18; TEMP 97.9
[2023-10-21] MEDS: ARIPiprazole 15 MG TABLET PO SCH (08:48)
[2023-10-21 09:49] VITALS: BP 126/64; PULSE 73; RESP 20; TEMP 97.8
[2023-10-21 09:56] VITALS: BP 126/64; PULSE 73; RESP 20; TEMP 97.8
[2023-10-21] MEDS: IBUPROFEN 600 MG TABLET PO PRN (09:56)
[2023-10-21] MEDS: LORazepam 2 MG TABLET PO PRN (18:43)
[2023-10-21 20:31] VITALS: RESP 18
[2023-10-21] MEDS: ZOLPIDEM TARTRATE 10 MG TABLET PO PRN (20:35)
[2023-10-21] MEDS: HALOPERIDOL 5 MG TABLET PO PRN (20:36)
[2023-10-22] MEDS: ARIPiprazole 15 MG TABLET PO SCH (08:05)
[2023-10-22 08:45] VITALS: BP 113/56; PULSE 86; RESP 19; TEMP 96.8
[2023-10-22] MEDS: LORazepam 2 MG TABLET PO PRN ×2 (09:37→14:48)
[2023-10-22] MEDS: HALOPERIDOL 5 MG TABLET PO PRN ×2 (09:37→14:48)
[2023-10-22 20:33] VITALS: RESP 18
[2023-10-23] MEDS: ARIPiprazole 15 MG TABLET PO SCH (08:05)
[2023-10-23] MEDS: LORazepam 2 MG TABLET PO PRN ×3 (08:47→17:49)
[2023-10-23 08:55] VITALS: BP 103/50; PULSE 73; RESP 19; TEMP 96.6
[2023-10-23] MEDS: HALOPERIDOL 5 MG TABLET PO PRN (17:50)
[2023-10-23 20:41] VITALS: RESP 18
[2023-10-24 08:14] VITALS: BP 129/80; PULSE 76; RESP 16; TEMP 97.5
[2023-10-24] MEDS: ARIPiprazole 15 MG TABLET PO SCH (08:21)
[2023-10-24] MEDS ORDERED: DiphenhydrAMINE HCL 50 MG/ML VIAL IM ONE (10:45)
[2023-10-24] MEDS ORDERED: HALOPERIDOL LACTATE 5 MG/ML VIAL IM ONE (10:45)
[2023-10-24] MEDS ORDERED: LORazepam 2 MG/ML VIAL IM ONE (10:45)
[2023-10-24] MEDS: LORazepam 2 MG TABLET PO PRN (16:49)
[2023-10-24] MEDS: HALOPERIDOL 5 MG TABLET PO PRN (16:50)
[2023-10-24] MEDS: MAG HYDROX/ALUMINUM HYD/SIMETH ES 30 ML SUSPENSION UDCUP PO PRN (17:31)
[2023-10-24] MEDS: ZOLPIDEM TARTRATE 10 MG TABLET PO PRN (21:42)
[2023-10-24 23:11] VITALS: RESP 18; TEMP 97
[2023-10-25] MEDS: HALOPERIDOL 5 MG TABLET PO PRN ×4 (03:48→17:30)
[2023-10-25] MEDS: LORazepam 2 MG TABLET PO PRN ×4 (03:48→17:30)
[2023-10-25] MEDS: ARIPiprazole 15 MG TABLET PO SCH (08:39)
[2023-10-25 09:41] VITALS: BP 142/80; PULSE 94; RESP 18; TEMP 97.8
[2023-10-25 22:46] VITALS: RESP 18
[2023-10-26] MEDS: ZOLPIDEM TARTRATE 10 MG TABLET PO PRN ×2 (02:05→22:24)
[2023-10-26] MEDS: ARIPiprazole 15 MG TABLET PO SCH (08:12)
[2023-10-26] MEDS: LORazepam 2 MG TABLET PO PRN ×2 (08:13→14:39)
[2023-10-26] MEDS: HALOPERIDOL 5 MG TABLET PO PRN ×2 (08:13→14:39)
[2023-10-26] MEDS ORDERED: DiphenhydrAMINE HCL 50 MG/ML VIAL IM ONE (08:15)
[2023-10-26] MEDS ORDERED: HALOPERIDOL LACTATE 5 MG/ML VIAL IM ONE (08:15)
[2023-10-26] MEDS ORDERED: LORazepam 2 MG/ML VIAL IM ONE (08:15)
[2023-10-26 08:46] VITALS: BP 137/79; PULSE 100; RESP 18; TEMP 97.6
[2023-10-26 20:13] VITALS: RESP 18
[2023-10-27] MEDS: LORazepam 2 MG TABLET PO PRN ×4 (04:48→18:08)
[2023-10-27] MEDS: HALOPERIDOL 5 MG TABLET PO PRN ×4 (04:48→18:08)
[2023-10-27] MEDS: ARIPiprazole 15 MG TABLET PO SCH (08:35)
[2023-10-27 12:31] VITALS: BP 110/66; PULSE 100; RESP 18; TEMP 98.3
[2023-10-27] MEDS: IBUPROFEN 600 MG TABLET PO PRN (17:34)
[2023-10-27 21:55] VITALS: BP 115/70; PULSE 97; RESP 18; TEMP 98
[2023-10-28] MEDS: MAG HYDROX/ALUMINUM HYD/SIMETH ES 30 ML SUSPENSION UDCUP PO PRN (00:15)
[2023-10-28] MEDS: LORazepam 2 MG TABLET PO PRN (00:16)
[2023-10-28] MEDS: ZOLPIDEM TARTRATE 10 MG TABLET PO PRN (01:19)
[2023-10-28] MEDS: ARIPiprazole 15 MG TABLET PO SCH (08:12)
[2023-10-28] MEDS: IBUPROFEN 600 MG TABLET PO PRN (08:13)
[2023-10-28 08:26] VITALS: BP 114/71; PULSE 76; RESP 20; TEMP 97.8
[2023-10-28] MEDS ORDERED: ARIP15TA2 PO (10:02)
== END 2023-10-28 12:30 | disposition home or self-care (01) | DRG 750 ==
LOC: EMS 05:40 → 3EI 10-19 14:37 → 3EC 10-23 08:30
PROVIDERS: ADMIT Psychiatry & Neurology Psychiatry; ATTEND Psychiatry & Neurology Psychiatry
DX: F20.9 Schizophrenia, unspecified (principal); R45.851 Suicidal ideations; F15.10 Other stimulant abuse, uncomplicated; F41.9 Anxiety disorder, unspecified; K59.00 Constipation, unspecified; E66.9 Obesity, unspecified; G47.00 Insomnia, unspecified; F17.210 Nicotine dependence, cigarettes, uncomplicated; Z88.2 Allergy status to sulfonamides; Z20.822 Contact with and (suspected) exposure to COVID-19; Z68.27 Body mass index [BMI] 27.0-27.9, adult
CPT/HCPCS: 80307; 81003; 87081; 99291; J1200; J1630; J2060; J3486

== ENCOUNTER 2024-08-17 13:09 | Emergency (ER) | payer MEDICARE, OTHER ==
[~2024-08-17] VITALS: Ht 182.9 cm; Wt 72.5 kg
[~2024-08-17 13:09] MED LIST changes: -ARIP10TA38 PO; +ARIP15TA2 PO
[2024-08-17 13:19] VITALS: BP 128/93; PULSE 71; RESP 18; TEMP 98; O2SAT 98
[2024-08-17] MEDS: ALBUTEROL SULFATE HFA 90 MCG/PUFF 8 GM INHALER IH ONE (14:42)
== END 2024-08-17 15:20 | disposition home or self-care (01) ==
LOC: EMS 13:11
DX: R06.02 Shortness of breath (principal); F17.210 Nicotine dependence, cigarettes, uncomplicated; F12.90 Cannabis use, unspecified, uncomplicated; F20.9 Schizophrenia, unspecified; J45.909 Unspecified asthma, uncomplicated; Z88.2 Allergy status to sulfonamides; Z79.899 Other long term (current) drug therapy
CPT/HCPCS: 99283; 71045; 99406; 94640; J3535

== ENCOUNTER 2024-08-26 19:28 | Emergency (ER) | payer MEDICARE, OTHER ==
[~2024-08-26] VITALS: Ht 177.8 cm; Wt 81.8 kg
[2024-08-26 19:38] VITALS: BP 145/93; PULSE 121; RESP 16; TEMP 98.6; O2SAT 100
== END 2024-08-26 21:23 | disposition left against medical advice (07) ==
LOC: EMS 19:28
DX: R06.02 Shortness of breath (principal); Z53.21 Procedure and treatment not carried out due to patient leaving prior to being seen by health care provider